=== PATIENT | male | born 1975 | race Caucasian/White ===

== ENCOUNTER 2017-02-18 22:04 | Emergency (ER) | payer OTHER ==
[~2017-02-18] VITALS: Ht 170.2 cm; Wt 89.8 kg
--- NOTE | 2017-02-18 23:48 | PHYS DOC ---
General Chief Complaint: BACK INJURY Stated Complaint: RIB PAIN ELEV BLOOD PRESSURE Time Seen by MD: 23:38 Source: patient Problems: History of Present Illness Initial Comments Patient here for left thoracic pain. Patient states this started this morning is gradually increased over the course today. It feels sharp periods located in the left low posterior chest area. There is no history of injury or trauma to the area. He was driving home from [place] yesterday for a prolonged time. He says he had pain like this before with "walking pneumonia", but that pain was more diffusely across the whole chest. He's had no fever or chills today. There is no runny nose or sore throat. There is no other chest pain. She he says he's been short of breath today, especially when he tries to get up and move around, more so over the course today. He has no nausea or vomiting. There is no abdominal pain. There is no change amount of bladder habits he denies any focal extremity or neurologic complaints. Patient's past medical history according to him is otherwise unremarkable except for PTSD. He is on Zoloft for this. He is a nonsmoker and nonuser of ethanol. He is also concerned because his blood pressure was high at home. He said he felt like he was going up and took his blood pressure was over 150 which is unusual for him. At time of physician evaluation, his blood pressure is doing better, and he thinks that the elevation may be related to anxiety and pain. Allergies: Coded Allergies: No Known Drug Allergies (Unverified , 02/19/17) Past Medical History Medical History: no pertinent history Psychosocial History: post traumatic stress Social History Smoker: non-smoker Alcohol: none Review of Systems All Other Systems: Reviewed and Negative Physical Exam General Appearance: WD/WN, no apparent distress Neck: full range of motion, supple, normal inspection Respiratory: lungs clear, normal breath sounds, no respiratory distress, other Cardiovascular: regular rate, rhythm, no edema Gastrointestinal: non tender, soft, no organomegaly Back: no CVA tenderness, no vertebral tenderness Extremities: non-tender, normal inspection, no pedal edema Neurologic/Psychiatric: alert, normal mood/affect, oriented x 3 Skin: normal color Lymphatic: no adenopathy Comments Generally this is a well-developed well-nourished white male in no acute distress. Vitals are as noted. Pertinent finds on physical exam shows the chest to be clear. Patient is mildly tender over the left low posterior thoracic chest wall. There is no signs of trauma. There is no bony tenderness or pain. Cardiac exam shows regular rate and rhythm without murmur. The abdomen is soft and nontender without masses or megaly. No perineal findings. Back shows no CVA tenderness. Externally show no redness cord asymmetry or signs of DVT. He is alert awake oriented and cooperative. Remainder of physical exam is clinically unremarkable. Orders, Labs, Meds Old charts note no prior ER visits within the current system. Labs today clinically unremarkable. D-dimer is negative. There is no evidence of urinary infection or hematuria. Chest x-ray shows no acute changes per the emergency physician. There is specifically no notation of hemothorax, pneumothorax, or infiltrate. 0120 Patient resting comfortably the ER. He says he feels better his pains also gone after Toradol. I discussed with him the uncertain cause of his discomfort, but this most likely represents some was still skeletal strain. There's no history of trauma but he may been sitting too long in a stiff position while driving home yesterday from [place]. I suggest that we can get him some medicine several Buechner given here in the ER for pain, and I'll write him prescriptions for Toradol and Norflex. We discussed home care possible muscle strain including rest, ice for the first several days followed by heat, gentle stretching exercises to the area. He voices understanding need to follow up with primary care or to return to the ER if worsening anyway. He looks well, in no acute discomfort or stress, okay for discharge home at this time. SHAYY ALDRIDGE MD Feb 18, 2017 23:48
[2017-02-19] MEDS: KETOROLAC 30 MG/ML VIAL. IV ONE (00:15)
[2017-02-19 00:22] LABS: BASO # 0.1 x10^3/uL (0.0-0.2); BASO % 1 % (0-3); EOS # 0.3 x10^3/uL (0.0-0.7); EOS % 4 % (0-3); HEMATOCRIT 44.1 % (39.0-53.0); HEMOGLOBIN 14.6 g/dL (13.0-17.5); LYMPH # 3.4 x10^3/uL (1.0-4.8); LYMPH % 41 % (24-48); MEAN CORPUSCULAR HEMOGLOBIN 29 pg (25-35); MEAN CORPUSCULAR HGB CONC 33 g/dL (31-37); MEAN CORPUSCULAR VOLUME 88 fL (79-100); MONO # 0.8 x10^3/uL (0.0-1.1); MONO % 10 % (0-9); NEUT # 3.7 x10^3uL (1.8-7.7); NEUT % 45 % (31-73); PLATELET COUNT 208 x10^3/uL (140-400); RED BLOOD COUNT 4.99 x10^6/uL (4.30-5.70); RED CELL DISTRIBUTION WIDTH 13.7 % (11.5-14.5); WHITE BLOOD COUNT 8.3 x10^3/uL (4.0-11.0)
[2017-02-19 00:29] LABS: ALBUMIN 3.7 g/dL (3.4-5.0); ALBUMIN/GLOBULIN RATIO 1.1 (1.0-1.7); CALCIUM 8.7 mg/dL (8.5-10.1); CREATININE 1.1 mg/dL (0.7-1.3); GFR 74.5; POTASSIUM 3.7 mmol/L (3.5-5.1); TOTAL BILIRUBIN 0.2 mg/dL (0.2-1.0)
[2017-02-19] MEDS ORDERED: KETOROLAC 30 MG/ML VIAL. ONE (00:30)
[2017-02-19 01:01] VITALS: BP 135/76
[2017-02-19 01:09] LABS: BACTERIA,URINE 0 /HPF (0-FEW); BILIRUBIN,URINE NEG (NEG); CLARITY,URINE CLEAR; COLOR,URINE YELLOW; GLUCOSE,URINE NEG (NEG); NITRITE,URINE NEG (NEG); RBC,URINE 0 /HPF (0-2); SQUAMOUS EPITHELIAL CELL,UR FEW /LPF; UROBILINOGEN,URINE 0.2 mg/dL (0.2 mg/dL); WBC,URINE OCC /HPF (0-4)
--- NOTE | 2017-02-19 09:21 | RAD ---
Left RIBS with chest, 3 views, 02/18/2017: History: Shortness of breath, rib pain No fracture or rib abnormality is detected. There is no evidence of underlying pneumothorax, hemothorax or pulmonary infiltrate. The heart size is normal. IMPRESSION: No significant left rib abnormality is detected.
== END 2017-02-19 01:30 | disposition home or self-care (01) ==
LOC: ER 22:04
DX: M54.6 Pain in thoracic spine (principal); R07.89 Other chest pain; F43.10 Post-traumatic stress disorder, unspecified
CPT/HCPCS: 36415; 71101; 80053; 81001; 85027; 85379; 96374; 99285; J1885